=== PATIENT | male | born 1950 | race Caucasian/White ===

== ENCOUNTER 2018-02-02 09:17 | Emergency (ER) | payer OTHER ==
[~2018-02-02] VITALS: Ht 172.7 cm; Wt 99.8 kg
[~2018-02-02 09:17] MED LIST: ACCU-CHEK1 EACH MC; ECO81 PO; GLU10 PO; GLUCOPHAGE XR500 MG PO; LAC PO; LIPI10 PO; LISINOPRIL2.5 MG PO; LOP600 PO; MAC100 PO; METFORMIN HCL1000 MG PO
[2018-02-02 09:25] VITALS: BP 153/86; Ht 172.7 cm; Wt 99.8 kg
== END 2018-02-02 09:57 | disposition home or self-care (01) ==
LOC: ED 09:17
DX: S40.811A Abrasion of right upper arm, initial encounter (principal); E11.9 Type 2 diabetes mellitus without complications; I10 Essential (primary) hypertension; V89.2XXA Person injured in unspecified motor-vehicle accident, traffic, initial encounter; Y93.73 Activity, racquet and hand sports; Y92.488 Other paved roadways as the place of occurrence of the external cause; Y99.8 Other external cause status

== ENCOUNTER 2019-09-11 15:28 | Emergency (ER) | payer OTHER ==
[~2019-09-11] VITALS: Ht 175.3 cm; Wt 81.6 kg
[2019-09-11 15:34] VITALS: Ht 175.3 cm; Wt 81.6 kg
[2019-09-11 16:37] LABS: BASOPHIL % 0.4 % (0-2); PLATELET COUNT 271 x10^3mcL (130-400); RED CELL DISTRIBUTION WIDTH 12.6 % (11.5-14.5)
[2019-09-11 16:54] LABS: ALBUMIN 3.9 g/dL (3.4-5.0); ALKALINE PHOSPHATASE 82 U/L (46-116); ALT/SGPT 21 U/L (16-63); AST/SGOT 12 U/L (15-37); BILIRUBIN TOTAL 0.3 mg/dL (0.20-1.00); CALCIUM 8.9 mg/dL (8.5-10.1); CARBON DIOXIDE 30.5 mmol/L (21-32); CHLORIDE SERUM 99 mmol/L (98-107); CHOLESTEROL 171 mg/dL (<200); CREATININE SERUM 0.8 mg/dL (0.7-1.3); GFR1 > 60 mL/min; GLUCOSE SERUM 235 mg/dL (74-106); POTASSIUM SERUM 4.2 mmol/L (3.5-5.1); SODIUM SERUM 137 mmol/L (136-145)
[2019-09-11 17:40] LABS: microscopic required? NO
[2019-09-11 18:07] LABS: urine erythrocyte NEGATIVE (NEGATIVE)
[2019-09-11 18:57] VITALS: BP 168/84
== END 2019-09-11 18:57 | disposition home or self-care (01) ==
LOC: ED 15:28
PROVIDERS: Emergency Medicine
DX: R51 Headache (principal)
CPT/HCPCS: 82962; G0480; J0780; J1885; Q0092